=== PATIENT | female | born 1950 | race Caucasian/White ===

== ENCOUNTER 2023-09-15 09:35 | Outpatient (REF) | payer MEDICARE, SELFPAY ==
--- NOTE | 2023-09-15 10:28 | MHC.AU.ANO ---
Adult Audiological Evaluation Date of Visit: 09/15/23 Reason for Appointment: Meme scheduled today's appointment for a hearing evaluation, but reports right sided drainage, swelling, discomfort over the last 2 weeks. She was hoping to have her ear treated today. Otoscopy shows red, swollen canal with white debris deep in canal. Recommended calling her PCP for assessment. She agreed it would be best to wait on further testing until her ear is feeling back to normal post treatment. Signature: Provider: Miguel Angel Gardner, CCC-A
== END 2023-09-15 09:36 | disposition home or self-care (01) ==
LOC: HO.SH 09:35
PROVIDERS: Visit Provider Internal Medicine
DX: Z13.89 Encounter for screening for other disorder (principal)